=== PATIENT | female | born 1940 | race Two or more races ===

== ENCOUNTER 2018-11-17 08:26 | Emergency (ER) | payer OTHER ==
[~2018-11-17] VITALS: Ht 172.7 cm; Wt 84.4 kg
== END 2018-11-17 12:22 | disposition home or self-care (01) ==
LOC: ER 08:26
DX: S52.612A Displaced fracture of left ulna styloid process, initial encounter for closed fracture (principal); W18.09XA Striking against other object with subsequent fall, initial encounter; Y93.89 Activity, other specified; Y92.018 Other place in single-family (private) house as the place of occurrence of the external cause; Y99.8 Other external cause status